=== PATIENT | male | born 1965 | race Caucasian/White ===

== ENCOUNTER 2018-10-09 10:37 | Emergency (ER) | payer MEDICARE, OTHER ==
[~2018-10-09] VITALS: Ht 190.5 cm; Wt 90.7 kg
--- NOTE | 2018-10-09 11:03 | NUR ---
Patient discharged to home in stable conditon. Written and verbal after care instructions given. Patient verbalizes understanding of instructions.
== END 2018-10-09 11:04 | disposition home or self-care (01) ==
LOC: ER 10:37
DX: H60.92 Unspecified otitis externa, left ear (principal)
CPT/HCPCS: A4663